=== PATIENT | female | born 1975 | race African-American/Black ===

== ENCOUNTER 2017-01-02 13:44 | Emergency (ER) | payer MEDICAID ==
[~2017-01-02] VITALS: Ht 167.6 cm; Wt 62.0 kg
[2017-01-02] MEDS ORDERED: IOHEXOL-300 100 ML BOTTLE ONE (14:39)
[2017-01-02] MEDS ORDERED: SODIUM CHLORIDE 0.9% 10ML VIAL ONE (14:39)
[2017-01-02] MEDS ORDERED: KETOROLAC 30MG/ML VIAL IV STA (15:10)
[2017-01-02 15:30] LABS: BASOPHILS % 0.4 % (0.0-2.0); EOSINOPHILS % 0.5 % (0.0-5.0); HEMATOCRIT. 41.3 % (36.0-48.0); HEMOGLOBIN. 13.9 g/dL (12.0-16.0); LYMPHOCYTES % 14.5 % (20.0-50.0); MEAN CORPUSCULAR HEMOGLOBIN 30.9 pg (28.0-32.0); MEAN CORPUSCULAR VOLUME 91.9 fL (81.0-99.0); MEAN PLATELET VOLUME 8.8 fl (7.4-10.4); NEUTROPHILS % 78.6 % (40.0-76.0); PLATELET 284 x1000/uL (130-400); RED BLOOD CELL COUNT 4.49 mill/uL (4.2-5.4); RED CELL DISTRIBUTION WIDTH 14.7 % (11.6-14.6)
[2017-01-02 15:35] LABS: GLUCOSE URINE NEGATIVE (NEGATIVE); KETONES URINE 3+ (NEGATIVE); LEUKOCYTE ESTERASE URINE 1+ (NEGATIVE); NITRITE URINE NEGATIVE (NEGATIVE); OCCULT BLOOD URINE 2+ (NEGATIVE); PROTEIN URINE 2+ (NEGATIVE); SPECIFIC GRAVITY URINE 1.028 (1.005-1.030)
[2017-01-02 15:36] LABS: CLARITY URINE CLOUDY (CLEAR); COLOR URINE YELLOW (YELLOW)
[2017-01-02 15:36] LABS: CHLORIDE 102 mEq/L (98-107)
[2017-01-02 15:45] LABS: CARBON DIOXIDE 25 mEq/L (21-32)
[2017-01-02] MEDS ORDERED: MORPHINE SULFATE 4 MG/ML CPJ (NOT FOR IM USE) IV ONE (16:00)
[2017-01-02] MEDS ORDERED: ONDANSETRON HCL 4MG/2ML VIAL IV ONE (16:15)
[2017-01-02] MEDS ORDERED: TRAMADOL 50MG TABLET PO ONE (18:45)
[2017-01-02 18:56] VITALS: BP 142/82
== END 2017-01-02 19:15 | disposition home or self-care (01) ==
LOC: ER 13:49
DX: K80.20 Calculus of gallbladder without cholecystitis without obstruction (principal); N39.0 Urinary tract infection, site not specified
CPT/HCPCS: 36415; 74177; 80053; 81001; 83690; 85025; 96374; 96375; 99285; A4216; J1885; J2270; J2405; Q9967; Z7610